=== PATIENT | female | born 1955 | race Caucasian/White ===

== ENCOUNTER → 2019-04-23 | Outpatient (CLI) | payer OTHER ==
[~2019-04-23] MED LIST: FENTANYL PF 100 MCG/2ML ONE; MIDAZOLAM 1 MG/ML, 5ML ONE
== END | disposition home or self-care (01) ==
LOC: RAD 09:10
PROVIDERS: ATTEND Physician Assistant Surgical
DX: M24.111 Other articular cartilage disorders, right shoulder (principal); M25.511 Pain in right shoulder
CPT/HCPCS: 73221; 99156; 99157; J2250; J3010